=== PATIENT | female | born 1960 | race Caucasian/White ===

== ENCOUNTER 2018-07-04 20:35 | Emergency (ER) | payer OTHER ==
[~2018-07-04] VITALS: Ht 162.6 cm; Wt 92.0 kg
[2018-07-04 21:20] LABS: APPEARANCE SL.HAZY ((CLEAR)); BILIRUBIN NEGATIVE; BLOOD LARGE; COLOR AMBER ((YELLOW)); GLUCOSE (STRIP) NEGATIVE; KETONES 5; LEUKOCYTES NEGATIVE; NITRITE POSITIVE; PROTEIN (STRIP) 100; SPECIFIC GRAVITY 1.026 (1.000-1.030); UROBILINOGEN 0.2 MG/DL (0.2-1.0)
[2018-07-04 21:34] LABS: HEMATOCRIT 42.9 % (36.0-46.0); HEMOGLOBIN 14.4 G/DL (11.9-15.5); MCH 31.5 PG (29.0-34.0); MCHC 33.6 G/DL (30.0-36.0); MCV 93.9 FL (83-99); PLATELET COUNT 206 K/uL (156-360); RBC DIS.WIDTH-CV 13.5 % (11.8-14.6); RBC DIS.WIDTH-SD 46.5 % (39-53); RED BLOOD COUNT 4.57 M/uL (3.80-5.20); WHITE BLOOD COUNT 8.9 K/uL (4.1-10.2)
[2018-07-04 21:41] LABS: CHLORIDE 112 mEq/L (99-109); POTASSIUM 3.9 mEq/L (3.7-5.4); SODIUM 144 mEq/L (136-147)
[2018-07-04 21:43] LABS: GLUCOSE 132 mg/dL (70-99)
[2018-07-04 21:47] LABS: CREATININE 0.8 mg/dL (0.6-1.3); GFR ESTIMATE (CALCULATED) > 59 mL/min/
[2018-07-04 21:48] LABS: UREA NITROGEN (BUN) 23 mg/dL (9-23)
[2018-07-04 22:01] LABS: EPITHELIAL CELLS 1+ /HPF; MUCUS NONE SEEN /LPF; WHITE BLOOD CELLS 0-5 /HPF (0-5)
[2018-07-04 22:02] LABS: BACTERIA 3+ /HPF; UCUL ADDED? YES
[2018-07-04] MEDS ORDERED: ZOFRAN ODT4 MG PO (22:16)
[2018-07-04] MEDS ORDERED: CIPRO500 MG PO (22:16)
[2018-07-04] MEDS ORDERED: PYRIDIUM200 MG PO (22:16)
[2018-07-04 22:51] VITALS: BP 135/98
== END 2018-07-04 22:52 | disposition home or self-care (01) ==
LOC: EME 20:35 → EXP 20:35
DX: N39.0 Urinary tract infection, site not specified (principal); B96.1 Klebsiella pneumoniae [K. pneumoniae] as the cause of diseases classified elsewhere; F17.200 Nicotine dependence, unspecified, uncomplicated; Z90.710 Acquired absence of both cervix and uterus; Z88.2 Allergy status to sulfonamides
CPT/HCPCS: 80048; 81003; 85027; 87077; 87086; 87186; 99281; 99284